=== PATIENT | male | born 1985 | race Two or more races ===

== ENCOUNTER 2017-05-25 07:44 | Emergency (ER) | payer SELFPAY ==
[~2017-05-25] VITALS: Ht 170.2 cm; Wt 69.4 kg
--- NOTE | 2017-05-25 07:55 | NUR ---
BIB [facility] FOUND ALTERED SLEEPING ON STREET. PATIENT ONLY ABLE TO PROVIDE FIRST NAME. NO OTHER HISTORY OBTAINED. BREATHING EVEN AND UNLABORED. NO SOB. VITALS STABLE, SAFETY AND COMFORT MEASURES IN PLACE. AWAITING MD ORDERS.
--- NOTE | 2017-05-25 11:30 | NUR ---
Patient is resting comfortably in bed with eyes closed. Easily aroused. VSS. CONNECTED TO TELE MONITOR
[2017-05-25 12:20] VITALS: BP 110/60
== END 2017-05-25 12:23 | disposition home or self-care (01) ==
LOC: ER 07:47
DX: F10.129 Alcohol abuse with intoxication, unspecified (principal); R41.82 Altered mental status, unspecified
CPT/HCPCS: 99283; A4606; Z7610